=== PATIENT | female | born 1990 | race Caucasian/White ===

== ENCOUNTER 2023-08-02 11:19 | Emergency (ER) | payer BC, OTHER ==
[2023-08-02 11:27] VITALS: BMI 22.6
[2023-08-02 12:31] LABS: BASO % 0.6 % (0-2.0); HEMATOCRIT 40.3 % (32.4-45.2); HEMOGLOBIN 13.8 GM/dL (10.7-15.3); MCHC 34.3 g/dl (32.0-36.0); MEAN CELL VOLUME 87.5 fl (80-96); MEAN PLT VOLUME 8.1 fl (7.5-11.1); MONO % 7.4 % (3.8-10.2); PLATELET COUNT 416 10^3/uL (134-434); RDW 13.2 % (11.6-15.6); WHITE BLOOD COUNT 7.8 K/mm3 (4.0-10.0)
[2023-08-02 12:47] LABS: PH,URINE 6.5 (5.0-8.0); URINE APPEARANCE CLEAR; URINE BILIRUBIN NEGATIVE (NEGATIVE); URINE COLOR YELLOW; URINE GLUCOSE (UA) NEGATIVE (NEGATIVE); URINE KETONE NEGATIVE (NEGATIVE); URINE LEUK ESTERASE TRACE (NEGATIVE); URINE NITRITE NEGATIVE (NEGATIVE); URINE PROTEIN NEGATIVE (NEGATIVE); URINE UROBILINOGEN 0.2 mg/dL (0.2-1.0)
[2023-08-02 12:48] LABS: EPI CELLS 9.7 /uL (0-25.1); URINE BACTERIA 69.3 /uL (0-1359); URINE RBC 11.2 /uL (0-23.9); URINE WBC 11.6 /uL (0-25.8)
[2023-08-02 12:49] LABS: HCG,QUALITATIVE URINE Negative; POTASSIUM 3.8 mmol/L (3.5-5.1)
[2023-08-02 12:52] LABS: ALBUMIN 3.9 g/dl (3.4-5.0); BLOOD UREA NITROGEN 7.3 mg/dL (7-18)
[2023-08-02 12:54] LABS: CREATININE 0.9 mg/dL (0.55-1.3)
[2023-08-02 12:56] LABS: BILIRUBIN,TOTAL 0.6 mg/dL (0.2-1); TOT PROT 7.9 g/dl (6.4-8.2)
[2023-08-02] MEDS ORDERED: ACETAMINOPHEN INJECTION 100 ML IVPB ONE (12:59)
[2023-08-02] MEDS: ACETAMINOPHEN 1000 MG/100 ML BAG IVPB ONE (13:13)
[2023-08-02 13:16] LABS: ERYTHROCYTE SEDIMENTATION RATE 13 mm/hr (0-20)
[2023-08-02] MEDS ORDERED: ONDANSETRON 4 MG/2 ML VIAL ONE (14:22)
[2023-08-02] MEDS: ONDANSETRON 4 MG/2 ML VIAL IVPUSH ONE (14:37)
[2023-08-02 17:02] VITALS: BP 130/85; PULSE 101; RESP 20; TEMP 98.2
[2023-08-02] MEDS ORDERED: KETOROLAC TROMETHAMINE 15 MG/ML VIAL ONE (17:23)
[2023-08-02] MEDS: KETOROLAC TROMETHAMINE 15 MG/ML VIAL IVPUSH ONE (17:39)
== END 2023-08-02 17:42 | disposition home or self-care (01) ==
LOC: JERFT 11:19 → JER 11:19 → JERFT 17:42
PROC: 3E033NZ Introduction of Analgesics, Hypnotics, Sedatives into Peripheral Vein, Percutaneous Approach (ICD-10-PCS; principal; 2023-08-02)
PROC: 3E0333Z Introduction of Anti-inflammatory into Peripheral Vein, Percutaneous Approach (ICD-10-PCS; 2023-08-02)
PROC: 3E033GC Introduction of Other Therapeutic Substance into Peripheral Vein, Percutaneous Approach (ICD-10-PCS; 2023-08-02)
DX: M53.3 Sacrococcygeal disorders, not elsewhere classified (principal); K59.00 Constipation, unspecified; R10.31 Right lower quadrant pain; R10.32 Left lower quadrant pain
CPT/HCPCS: 36415; 74177-TC; 80053; 81003; 83690; 84703; 85025; 85651; 86140; 99285-25; J0131